=== PATIENT | male | born 1975 | race Caucasian/White ===

== ENCOUNTER 2018-11-05 08:40 | Emergency (ER) | payer MEDICAID ==
[2018-11-05] MEDS ORDERED: NORMAL SALINE 1000 ML 1,000 ML IV ONE ×2 (09:33→11:07)
--- NOTE | 2018-11-05 09:42 | ER Document Report ---
Entered by MIC WHITE SCRIBE 11/05/18 0936 Acting as scribe for:QUINCY PATTERSON MD ED GI/ - General Mode of Arrival: Ambulatory Information source: Patient <QUINCY PATTERSON - Last Filed: 11/05/18 14:11> <CORTEZSHAKEEL - Last Filed: 11/05/18 18:39> - General Chief Complaint: Post Surgical Pain Stated Complaint: ABDOMINAL PAIN Time Seen by Provider: 11/05/18 09:18 Notes: 43 year old male with stage IV cholangiocarcinoma that presents to the emergency department today with complaints of abdominal pain since last night. Patient recently had a biliary drain placed for an Klebsiella E. coli liver abscess. This biliary drain was removed x3 days ago in [place], [place]. Patient states that as the interventional radiologist was removing the drain they stated that there was no more fluid collection, that the abscess had collapsed, but there was still communication between this drain and his liver. Patient reports that doctors in [place] "hoped it would eventually close and heal without needing another drain placed". Patient has been on Augmentin for the last month. Patient states he was on chemotherapy for 3 years which eventually failed. He has been in an immunotherapy research program for the last 9 months. Patient states his cancer has remained stable for the last 9 months without any improvement or worsening. (QUINCY PATTERSON) - Related Data Allergies/Adverse Reactions: No Known Allergies Allergy (Unverified 11/05/18 10:41) Past Medical History - General Information source: Patient - Social History Smoking Status: Current Every Day Smoker Cigarette use (# per day): Yes - 1 ppd Frequency of alcohol use: None Drug Abuse: None Lives with: Family Family History: Reviewed & Not Pertinent - Past Medical History Cardiac Medical History: Reports: Hx Hypertension Malignancy Medical History: Reports Other - Cholangiocarcinoma Past Surgical History: Reports: Hx Abdominal Surgery - Hemihepatectomy. Meek -en-Y. Biliary drain placed for liver abscess. <QUINCY PATTERSON - Last Filed: 11/05/18 14:11> Review of Systems - Review of Systems Constitutional: denies: Fever EENT: No symptoms reported Cardiovascular: No symptoms reported Respiratory: No symptoms reported Gastrointestinal: See HPI, Abdominal pain. denies: Nausea, Vomiting Genitourinary: No symptoms reported Male Genitourinary: No symptoms reported Musculoskeletal: No symptoms reported Skin: No symptoms reported Hematologic/Lymphatic: No symptoms reported Neurological/Psychological: No symptoms reported -: Yes All other systems reviewed and negative <QUINCY PATTERSON - Last Filed: 11/05/18 14:11> Physical Exam <QUINCY PATTERSON - Last Filed: 11/05/18 14:11> - Vital signs Vitals: Temp Pulse Resp BP Pulse Ox 98 F 86 16 144/97 H 100 11/05/18 08:45 11/05/18 08:45 11/05/18 08:45 11/05/18 08:45 11/05/18 08:45 - Notes Notes: Physical Exam: General: Alert, very thin appearing consistent with history of malignancy. HEENT: Normocephalic. Atraumatic. PERRL. Extraocular movements intact. Oropharynx clear. Neck: Supple. Non-tender. Respiratory: No respiratory distress. Clear and equal breath sounds bilaterally. Cardiovascular: Regular rate and rhythm. Abdominal: Small stoma in the RUQ where biliary drain was removed. No drainage from this stoma. No surrounding erythema. Tenderness with palpation surrounding stoma. No distension. Normal Bowel Sounds. Back: No gross abnormalities. Extremities: Moves all four extremities. Upper extremities: Normal inspection. Normal ROM. Lower extremities: Normal inspection. No edema. Normal ROM. Neurological: Normal cognition. AAOx4. Normal speech. Psychological: Normal affect. Normal Mood. Skin: Warm. Dry. Tanned skin. (QUINCY PATTERSON) Course - Laboratory Result Diagrams: 11/05/18 10:28 11/05/18 10:28 - Diagnostic Test Radiology reviewed: Image reviewed, Reports reviewed - CT scan of the abdomen pelvis with oral and IV contrast shows a low-density lesion in the liver that is suspicious for abscess or biloma. <QUINCY PATTERSON - Last Filed: 11/05/18 14:11> - Laboratory Result Diagrams: 11/05/18 10:28 11/05/18 10:28 <SHAKEEL CORTEZ - Last Filed: 11/05/18 18:39> - Re-evaluation Re-evalutation: 11/05/18 14:12 Discussed with the radiologist, he called the interventional radiologist and they decided they wanted me to get the patient transferred to their facility where they could get together and review the images and try to get labs and images from the facility in [place] for comparison. (QUINCY PATTERSON) 11/05/18 18:35 Patient seen and examined, note reviewed, signout received from Dr. Patterson. Patient was apparently not accepted at 1 of the facilities called, therefore I patient called to [facility], discussed the case with the general hospitalist Dr. Doe, who wished to discuss the case with the oncology team, I spoke with Dr. Blanco with oncology, who stated they could see the patient, and will be accepted to the hospitalist service, patient while in the ED and while I was monitoring him, was still having some pain, is given additional Dilaudid, and a dose of Reglan for his nausea, it was discussed with him that he would be transferred to [place], which she was agreeable to, for IR placement of a drain. Laboratory 11/05/18 11/05/18 11/05/18 10:28 10:28 10:28 WBC 17.4 H RBC 4.49 Hgb 13.5 Hct 40.6 MCV 91 MCH 30.1 MCHC 33.3 RDW 15.5 H Plt Count 593 H Lymph % (Auto) Not Reportable [place] % (Auto) Not Reportable Eos % (Auto) Not Reportable Baso % (Auto) Not Reportable Absolute Neuts (auto) Not Reportable Absolute Lymphs (auto) Not Reportable Absolute Monos (auto) Not Reportable Absolute Eos (auto) Not Reportable Absolute Basos (auto) Not Reportable Total Counted 100 Seg Neutrophils % Not Reportable Seg Neuts % (Manual) 89 H Lymphocytes % (Manual) 5 L Monocytes % (Manual) 6 Eosinophils % (Manual) 0 Basophils % (Manual) 0 Abs Neuts (Manual) 15.5 H Abs Lymphs (Manual) 0.9 Abs Monocytes (Manual) 1.0 Absolute Eos (Manual) 0.0 Abs Basophils (Manual) 0.0 Clumped Platelets PRESENT Platelet Comment INCREASED Anisocytosis 1+ Sodium 139.8 Potassium 4.2 Chloride 97 L Carbon Dioxide 29 Anion Gap 14 BUN 18 Creatinine 1.24 Est GFR ( Amer) > 60 Est GFR (MDRD) Non-Af > 60 Glucose 117 H Calcium 10.4 H Total Bilirubin 0.6 Direct Bilirubin 0.4 Neonat Total Bilirubin Not Reportable Neonat Direct Bilirubin Not Reportable Neonat Indirect Bili Not Reportable AST 82 H ALT 73 Alkaline Phosphatase 430 H Total Protein 8.4 H Albumin 4.8 Lipase 404.6 H Urine Color YELLOW Urine Appearance SLIGHTLY-CLOUDY Urine pH 6.0 Ur Specific [place] 1.023 Urine Protein 30 H Urine Glucose (UA) NEGATIVE Urine Ketones NEGATIVE Urine Blood SMALL H Urine Nitrite NEGATIVE Urine Bilirubin NEGATIVE Urine Urobilinogen 2.0 H Ur Leukocyte Esterase NEGATIVE Urine WBC (Auto) 1 Urine RBC (Auto) 5 U Hyaline Cast (Auto) 3 Urine Mucus (Auto) FEW Urine Ascorbic Acid NEGATIVE Abdomen/Pelvis CT 11/05/18 09:33 IMPRESSION: 1. Low-density lesion in the liver suspicious for abscess or biloma. 2. Chronic biliary dilatation in patient with known stage IV cholangiocarcinoma status post partial hepatectomy. (SHAKEEL CORTEZ) - Vital Signs Vital signs: Temp Pulse Resp BP Pulse Ox 98 F 86 16 144/97 H 100 11/05/18 08:45 11/05/18 08:45 11/05/18 08:45 11/05/18 08:45 11/05/18 08:45 - Laboratory Laboratory results interpreted by me: 11/05/18 11/05/18 11/05/18 10:28 10:28 10:28 WBC 17.4 H RDW 15.5 H Plt Count 593 H Seg Neuts % (Manual) 89 H Lymphocytes % (Manual) 5 L Abs Neuts (Manual) 15.5 H Chloride 97 L Glucose 117 H Calcium 10.4 H AST 82 H Alkaline Phosphatase 430 H Total Protein 8.4 H Lipase 404.6 H Urine Protein 30 H Urine Blood SMALL H Urine Urobilinogen 2.0 H Discharge <QUINCY PATTERSON - Last Filed: 11/05/18 14:11> <SHAKEEL CORTEZ - Last Filed: 11/05/18 18:39> - Discharge Clinical Impression: Liver abscess Leukocytosis Qualifiers: Leukocytosis type: unspecified Qualified Code(s): D72.829 - Elevated white blood cell count, unspecified Condition: Stable Disposition: [facility] Scribe Attestation: 11/05/18 09:42 I personally performed the services described in the documentation, reviewed and edited the documentation which was dictated to the scribe in my presence, and it accurately records my words and actions. (QUINCY PATTERSON) I personally performed the services described in the documentation, reviewed and edited the documentation which was dictated to the scribe in my presence, and it accurately records my words and actions.
[2018-11-05] MEDS ORDERED: ONDANSETRON HCL INJ/PF 4 MG/2 ML SDV IV ONE (10:41)
[2018-11-05] MEDS ORDERED: HYDROMORPHONE HCL INJ/PF 2 MG/ML AMPULE IV ONE ×3 (10:41→21:10)
[2018-11-05 10:42] LABS: HEMATOCRIT 40.6 % (37.9-51.0); HEMOGLOBIN 13.5 g/dL (13.5-17.0); MEAN CORPUSCULAR HEMOGLOBIN 30.1 pg (27.0-33.4); MEAN CORPUSCULAR HGB CONC 33.3 g/dL (32.0-36.0); MEAN CORPUSCULAR VOLUME 91 fl (80-97); PLATELET COUNT 593 10^3/uL (150-450); RED BLOOD COUNT 4.49 10^6/uL (4.35-5.55); RED CELL DISTRIBUTION WIDTH 15.5 % (11.5-14.0); WHITE BLOOD COUNT 17.4 10^3/uL (4.0-10.5)
[2018-11-05 10:43] LABS: APPEARANCE,URINE SLIGHTLY-CLOUDY; BILIRUBIN,URINE NEGATIVE (NEGATIVE); COLOR,URINE YELLOW; GLUCOSE, URINE NEGATIVE (NEGATIVE); KETONES,URINE NEGATIVE (NEGATIVE); LEUKOCYTE ESTERASE,URINE NEGATIVE (NEGATIVE); NITRITE,URINE NEGATIVE (NEGATIVE); PROTEIN,URINE 30 mg/dL (NEGATIVE); URINE SPECIFIC GRAVITY 1.023
[2018-11-05 11:00] LABS: ALBUMIN 4.8 g/dL (3.5-5.0); ALKALINE PHOSPHATASE 430 U/L (38-126); ANION GAP 14 (5-19); ASPARTATE AMINO TRANSFERASE 82 U/L (17-59); BILIRUBIN,DIRECT 0.4 mg/dL (0.0-0.4); BILIRUBIN,TOTAL 0.6 mg/dL (0.2-1.3); BLOOD UREA NITROGEN 18 mg/dL (7-20); CALCIUM 10.4 mg/dL (8.4-10.2); CARBON DIOXIDE 29 mmol/L (22-30); CHLORIDE 97 mmol/L (98-107); GLUCOSE 117 mg/dL (75-110); POTASSIUM 4.2 mmol/L (3.6-5.0); TOTAL PROTEIN 8.4 g/dL (6.3-8.2)
[2018-11-05 11:04] LABS: ABSOLUTE LYMPHOCYTES# (MANUAL) 0.9 10^3/uL (0.5-4.7); ANISOCYTOSIS 1+; BASOPHILS % (MANUAL) 0 % (0-2); EOSINOPHILS % (MANUAL) 0 % (0-6); LYMPHOCYTES % (MANUAL) 5 % (13-45); MONOCYTES % (MANUAL) 6 % (3-13); PLATELET CLUMPS PRESENT; PLATELET COMMENT INCREASED; SEGMENTED NEUTROPHILS % (MAN) 89 % (42-78); TOTAL CELLS COUNTED 100
[2018-11-05] MEDS ORDERED: ERTAPENEM SODIUM INJ 1 GM VIAL IV ONE (12:39)
--- NOTE | 2018-11-05 13:08 | RADIOLOGY REPORT (SQ) ---
EXAM DESCRIPTION: CT ABD/PELVIS WITH IV ORAL COMPLETED DATE/TIME: 11/05/2018 11:27 am REASON FOR STUDY: Biliary drain removed 3 days ago, increasing pain COMPARISON: None. TECHNIQUE: CT scan of the abdomen and pelvis performed with intravenous and oral contrast using gus karan scanning technique with dynamic intravenous contrast injection. Images reviewed with lung, soft t issue, and bone windows. Reconstructed coronal and sagittal MPR images reviewed. Delayed images for e valuation of the urinary system also acquired. All images stored on PACS. All CT scanners at this facility use dose modulation, iterative reconstruction, and/or weight based d osing when appropriate to reduce radiation dose to as low as reasonably achievable (ALARA). [facility]: Dose Right [facility]: CareDose [facility]: Dose Right [facility]: Teradose 4D [facility]: CyberDefender CONTRAST TYPE AND DOSE: contrast/concentration: Isovue 350.00 mg/ml; Total Contrast Delivered: 70.0 ml; Total Saline Delivered: 66.0 ml RENAL FUNCTION: GFR > 60. RADIATION DOSE: CT Rad equipment meets quality standard of care and radiation dose reduction techniq ues were employed. CTDIvol: 3.7 - 4.1 mGy. DLP: 385 mGy-cm. . LIMITATIONS: None. FINDINGS: LOWER CHEST: No significant findings. No nodules or infiltrates. LIVER: Prior resection part of the right lobe. Intrahepatic biliary dilatation. 2.7 cm oval focus o f low attenuation in right lobe measuring 15 HU. SPLEEN: Normal size. No focal lesions. PANCREAS: No masses. No significant calcifications. No adjacent inflammation or peripancreatic fluid collections. Pancreatic duct not dilated. GALLBLADDER: Surgically absent. ADRENAL GLANDS: No significant masses or asymmetry. RIGHT KIDNEY AND URETER: No solid masses. No significant calcifications. No hydronephrosis or hyd roureter. LEFT KIDNEY AND URETER: No solid masses. No significant calcifications. No hydronephrosis or hydr oureter. AORTA AND VESSELS: No aneurysm. No dissection. Renal arteries, SMA, celiac without stenosis. RETROPERITONEUM: Small retroperitoneal nodes measuring less than 1 cm in short axis. BOWEL AND PERITONEAL CAVITY: Anastomosis in the lower abdomen. Mild gastric distention. Trace of as cites. No free air. APPENDIX: Surgically absent. PELVIS: No significant masses. Normal bladder. No free fluid. ABDOMINAL WALL: No masses. No hernias. BONES: Nothing acute. OTHER: No other significant finding. IMPRESSION: 1. Low-density lesion in the liver suspicious for abscess or biloma. 2. Chronic biliary dilatation in patient with known stage IV cholangiocarcinoma status post partial h epatectomy. TECHNICAL DOCUMENTATION: JOB ID: [id number] Quality ID # [id number]: Final reports with documentation of one or more dose reduction techniques (e.g., Au tomated exposure control, adjustment of the mA and/or kV according to patient size, use of iterative reconstruction technique) 2010 [employer]- All Rights Reserved Reading location - IP/workstation name: [email or web address]
[2018-11-05] MEDS ORDERED: ONDANSETRON 4 MG TAB.RAPDIS PO ONE ×2 (17:26→21:10)
[2018-11-05] MEDS ORDERED: HYDROMORPHONE HCL INJ/PF 2 MG/ML AMPULE IM ONE (18:01)
[2018-11-05 22:24] VITALS: BP 134/91
== END 2018-11-05 22:30 | disposition short-term general hospital (02) ==
LOC: ER 08:40
DX: K75.0 Abscess of liver (principal); D72.829 Elevated white blood cell count, unspecified; G89.18 Other acute postprocedural pain; F17.210 Nicotine dependence, cigarettes, uncomplicated; I10 Essential (primary) hypertension
CPT/HCPCS: 96376; 99284; 96372; 96361; 96375; 96365; 36415; 87040; 83690; 85025; 80053; 81001; 74177; S0119; J1335; J1170; J2405; J7030